=== PATIENT | female | born 1965 | race Caucasian/White ===

== ENCOUNTER 2022-12-02 11:28 | Inpatient (IN) | payer MEDICAID ==
[~2022-12-02] VITALS: Ht 152.4 cm; Wt 104.0 kg
[~2022-12-02 11:28] MED LIST: ESCI-8 PO
[2022-12-04] MEDS ORDERED: LORazepam 2 MG TABLET PO PRN (16:45)
[2022-12-04] MEDS ORDERED: HALOPERIDOL 5 MG TABLET PO PRN (16:45)
[2022-12-04 17:29] VITALS: BP 127/45; PULSE 90; RESP 18; TEMP 97.3; O2SAT 97
[2022-12-04] MEDS ORDERED: PANT40TA54 PO (18:48)
[2022-12-04] MEDS ORDERED: FLUT1BLS9 IH (18:48)
[2022-12-04] MEDS ORDERED: DULO-114 PO (18:48)
[2022-12-04] MEDS ORDERED: GABA-1181 PO (18:48)
[2022-12-04] MEDS ORDERED: BUSP10TA23 PO (18:48)
[2022-12-04] MEDS ORDERED: FERR325T23 PO (18:48)
[2022-12-04] MEDS ORDERED: LEVE250T4 PO (18:48)
[2022-12-04] MEDS ORDERED: CLOT15CR23 TP (18:48)
[2022-12-04] MEDS ORDERED: DICL100G31 TP (18:48)
[2022-12-04] MEDS ORDERED: FURO40TA5 PO (18:48)
[2022-12-04] MEDS ORDERED: RISP2TAB45 PO (18:48)
[2022-12-04] MEDS ORDERED: DIVA500T53 PO (18:48)
[2022-12-04] MEDS ORDERED: TRAZ-257 PO (18:48)
[2022-12-04] MEDS ORDERED: CHOL100062 PO (18:48)
[2022-12-04] MEDS ORDERED: NITR0.4T52 SL (18:48)
[2022-12-04] MEDS ORDERED: BENZONATATE 100 MG CAPSULE PO PRN (19:15)
[2022-12-04] MEDS ORDERED: PHENAZOPYRIDINE HCL 100 MG TABLET PO PRN (19:15)
[2022-12-04] MEDS ORDERED: ONDANSETRON HCL 4 MG TABLET PO PRN (19:15)
[2022-12-04] MEDS: QUEtiapine FUMARATE 25 MG TABLET PO SCH (21:07)
[2022-12-04] MEDS: DIVALPROEX SODIUM 500 MG ER TABLET PO SCH (21:07)
[2022-12-04 21:17] VITALS: BP 115/68; PULSE 77; RESP 18; TEMP 97.8; O2SAT 96
[2022-12-04] MEDS: FLUTICASONE/SALMETEROL 100-50 MCG/INH INHALER [60] IH SCH (21:29)
[2022-12-05] MEDS: FERROUS SULFATE 325 MG EC TABLET PO SCH ×2 (06:53→16:20)
[2022-12-05] MEDS: FUROSEMIDE 40 MG TABLET PO SCH (08:07)
[2022-12-05] MEDS: CHOLECALCIFEROL (VIT D3) 1,000 UNITS [25 MCG] TABLET PO SCH (08:07)
[2022-12-05] MEDS: OMEPRAZOLE 20 MG CAPSULE PO SCH (08:07)
[2022-12-05] MEDS: LevETIRAcetam 250 MG TABLET PO SCH ×2 (08:08→16:20)
[2022-12-05] MEDS: ESCITALOPRAM OXALATE 10 MG TABLET PO SCH (08:08)
[2022-12-05] MEDS: ASCORBIC ACID 500 MG TABLET PO SCH ×2 (08:08→16:20)
[2022-12-05] MEDS: POTASSIUM CHLORIDE 8 MEQ ER TABLET PO SCH (08:08)
[2022-12-05] MEDS: QUEtiapine FUMARATE 25 MG TABLET PO SCH ×2 (08:10→21:32)
[2022-12-05] MEDS: FLUTICASONE/SALMETEROL 100-50 MCG/INH INHALER [60] IH SCH ×2 (08:11→21:31)
[2022-12-05] MEDS: LISINOPRIL 10 MG TABLET PO SCH (09:32)
[2022-12-05 09:44] VITALS: BP 116/68; PULSE 81; RESP 18; TEMP 97; O2SAT 96
[2022-12-05] MEDS: GABAPENTIN 300 MG CAPSULE PO SCH ×2 (14:49→16:20)
[2022-12-05] MEDS: RisperiDONE 3 MG TABLET PO SCH (16:20)
[2022-12-05] MEDS: BusPIRone HCL 10 MG TABLET PO SCH (16:20)
[2022-12-05 20:58] VITALS: BP 101/63; PULSE 84; RESP 18; TEMP 97.2; O2SAT 95
[2022-12-05] MEDS: DIVALPROEX SODIUM 500 MG ER TABLET PO SCH (21:32)
[2022-12-05] MEDS: ZOLPIDEM TARTRATE 5 MG TABLET PO PRN (21:32)
[2022-12-06] MEDS: FERROUS SULFATE 325 MG EC TABLET PO SCH ×2 (06:39→16:25)
[2022-12-06 09:17] VITALS: BP 114/69; PULSE 98; RESP 18; TEMP 97.9; O2SAT 97
[2022-12-06] MEDS: BusPIRone HCL 10 MG TABLET PO SCH ×2 (09:40→18:21)
[2022-12-06] MEDS: LevETIRAcetam 250 MG TABLET PO SCH ×2 (09:40→18:21)
[2022-12-06] MEDS: ASCORBIC ACID 500 MG TABLET PO SCH ×2 (09:41→16:24)
[2022-12-06] MEDS: GABAPENTIN 300 MG CAPSULE PO SCH ×3 (09:46→16:23)
[2022-12-06] MEDS: RisperiDONE 3 MG TABLET PO SCH ×2 (09:47→16:23)
[2022-12-06] MEDS: QUEtiapine FUMARATE 25 MG TABLET PO SCH ×2 (09:47→21:18)
[2022-12-06] MEDS: LISINOPRIL 10 MG TABLET PO SCH (09:47)
[2022-12-06] MEDS: OMEPRAZOLE 20 MG CAPSULE PO SCH (09:48)
[2022-12-06] MEDS: POTASSIUM CHLORIDE 8 MEQ ER TABLET PO SCH (09:48)
[2022-12-06] MEDS: ESCITALOPRAM OXALATE 10 MG TABLET PO SCH (09:48)
[2022-12-06] MEDS: CHOLECALCIFEROL (VIT D3) 1,000 UNITS [25 MCG] TABLET PO SCH (09:48)
[2022-12-06] MEDS: FUROSEMIDE 40 MG TABLET PO SCH (09:48)
[2022-12-06] MEDS: FLUTICASONE/SALMETEROL 100-50 MCG/INH INHALER [60] IH SCH ×2 (09:49→21:17)
[2022-12-06] MEDS: DIVALPROEX SODIUM 500 MG ER TABLET PO SCH (21:18)
[2022-12-06] MEDS: ZOLPIDEM TARTRATE 5 MG TABLET PO PRN (21:19)
[2022-12-06 23:37] VITALS: RESP 18
[2022-12-07] MEDS: FERROUS SULFATE 325 MG EC TABLET PO SCH ×2 (06:34→17:56)
[2022-12-07] MEDS ORDERED: NICOTINE 14 MG/24 HOUR PATCH TD PRN (07:00)
[2022-12-07] MEDS ORDERED: DOCUSATE SODIUM 100 MG CAPSULE PO PRN (07:00)
[2022-12-07] MEDS ORDERED: PETROLATUM,WHITE 28 GM JELLY TP PRN (07:00)
[2022-12-07] MEDS ORDERED: ACETAMINOPHEN 325 MG TABLET PO PRN (07:00)
[2022-12-07] MEDS ORDERED: MAGNESIUM HYDROXIDE SUSPENSION 30 ML UDCUP PO PRN (07:00)
[2022-12-07] MEDS ORDERED: IBUPROFEN 400 MG TABLET PO PRN (07:00)
[2022-12-07] MEDS ORDERED: LOPERAMIDE HCL 2 MG CAPSULE PO PRN (07:00)
[2022-12-07] MEDS ORDERED: ONDANSETRON HCL 4 MG TABLET PO PRN (07:00)
[2022-12-07] MEDS ORDERED: CloNIDine HCL 0.1 MG TABLET PO PRN (07:00)
[2022-12-07] MEDS ORDERED: MAG HYDROX/AL HYDROX/SIMETH ES 30 ML SUSPENSION UDCUP PO PRN (07:00)
[2022-12-07] MEDS ORDERED: ALBUTEROL SULFATE HFA 90 MCG/PUFF 8 GM INHALER IH PRN (07:00)
[2022-12-07 08:50] VITALS: BP 107/72; PULSE 86; RESP 18; TEMP 97.7; O2SAT 97
[2022-12-07] MEDS: RisperiDONE 3 MG TABLET PO SCH ×2 (09:00→17:16)
[2022-12-07] MEDS: ASCORBIC ACID 500 MG TABLET PO SCH ×2 (09:00→17:16)
[2022-12-07] MEDS: OMEPRAZOLE 20 MG CAPSULE PO SCH (09:00)
[2022-12-07] MEDS: QUEtiapine FUMARATE 25 MG TABLET PO SCH ×2 (09:00→20:39)
[2022-12-07] MEDS: CHOLECALCIFEROL (VIT D3) 1,000 UNITS [25 MCG] TABLET PO SCH (09:00)
[2022-12-07] MEDS: BusPIRone HCL 10 MG TABLET PO SCH ×2 (09:01→17:16)
[2022-12-07] MEDS: LISINOPRIL 10 MG TABLET PO SCH (09:01)
[2022-12-07] MEDS: FUROSEMIDE 40 MG TABLET PO SCH (09:01)
[2022-12-07] MEDS: ESCITALOPRAM OXALATE 10 MG TABLET PO SCH (09:01)
[2022-12-07] MEDS: LevETIRAcetam 250 MG TABLET PO SCH ×2 (09:01→17:17)
[2022-12-07] MEDS: FLUTICASONE/SALMETEROL 100-50 MCG/INH INHALER [60] IH SCH ×2 (09:02→20:39)
[2022-12-07] MEDS: GABAPENTIN 300 MG CAPSULE PO SCH ×3 (09:02→17:17)
[2022-12-07] MEDS: POTASSIUM CHLORIDE 8 MEQ ER TABLET PO SCH (10:43)
[2022-12-07] MEDS: GuaiFENesin/D-METHORPHAN [SUGAR-FREE] 200-20MG/10 ML SYRUP UDCUP PO PRN (18:30)
[2022-12-07 20:24] VITALS: BP 105/58; PULSE 84; RESP 18; TEMP 97.6; O2SAT 94
[2022-12-07] MEDS: DIVALPROEX SODIUM 500 MG ER TABLET PO SCH (20:39)
[2022-12-08] MEDS: FERROUS SULFATE 325 MG EC TABLET PO SCH ×2 (06:38→17:58)
[2022-12-08 08:53] VITALS: BP 119/65; PULSE 95; RESP 18; TEMP 97.1; O2SAT 96
[2022-12-08 10:05] LABS: BASOPHILS % (AUTO) 0.3 % (0.0-2.0); EOSINOPHILS % (AUTO) 2.2 % (1.0-6.0); HEMATOCRIT 33.9 % (36-46); LYMPHOCYTES % (AUTO) 32.8 % (22.0-44.0); MEAN CORPUSCULAR HEMOGLOBIN 30.2 pg (26.0-34.0); MEAN CORPUSCULAR HGB CONC 32.4 G/dL (31.0-37.0); MEAN CORPUSCULAR VOLUME 93 fL (80-100); MONOCYTES # (AUTO) 0.5 K/uL (0.1-1.0); MONOCYTES % (AUTO) 9.1 % (2.0-9.0); NEUTROPHILS # (AUTO) 3.3 K/uL (1.8-7.7); NEUTROPHILS % (AUTO) 55.6 % (40.0-70.0); PLATELET COUNT (AUTO) 332 K/uL (150-450); RED BLOOD CELL COUNT(AUTO) 3.63 MIL/uL (4.00-5.20)
[2022-12-08 10:17] LABS: HEMOGLOBIN A1C 5.4 % (3.8-5.6)
[2022-12-08] MEDS: ESCITALOPRAM OXALATE 10 MG TABLET PO SCH (10:19)
[2022-12-08] MEDS: GABAPENTIN 300 MG CAPSULE PO SCH ×3 (10:21→17:58)
[2022-12-08] MEDS: FUROSEMIDE 40 MG TABLET PO SCH (10:21)
[2022-12-08] MEDS: OMEPRAZOLE 20 MG CAPSULE PO SCH (10:21)
[2022-12-08] MEDS: LISINOPRIL 10 MG TABLET PO SCH (10:21)
[2022-12-08] MEDS: RisperiDONE 3 MG TABLET PO SCH ×2 (10:21→17:58)
[2022-12-08] MEDS: CHOLECALCIFEROL (VIT D3) 1,000 UNITS [25 MCG] TABLET PO SCH (10:21)
[2022-12-08 10:28] LABS: ALBUMIN 2.9 g/dL (3.4-5.0); BILIRUBIN,TOTAL 0.2 mg/dL (0.1-1.0); CALCIUM, TOTAL 9.5 mg/dL (8.8-10.5); CREATININE 1.01 mg/dL (0.60-1.30); POTASSIUM 4.7 mmol/L (3.5-5.1); THYROID STIMULATING HORMONE 0.77 uIU/mL (0.36-3.74); TOTAL PROTEIN, SERUM 6.5 g/dL (6.4-8.2)
[2022-12-08] MEDS: BusPIRone HCL 10 MG TABLET PO SCH ×2 (10:29→17:59)
[2022-12-08] MEDS: LevETIRAcetam 250 MG TABLET PO SCH ×2 (10:29→17:58)
[2022-12-08] MEDS: ASCORBIC ACID 500 MG TABLET PO SCH ×2 (10:29→17:57)
[2022-12-08] MEDS: POTASSIUM CHLORIDE 8 MEQ ER TABLET PO SCH (10:29)
[2022-12-08] MEDS: QUEtiapine FUMARATE 25 MG TABLET PO SCH ×2 (10:33→20:46)
[2022-12-08] MEDS: FLUTICASONE/SALMETEROL 100-50 MCG/INH INHALER [60] IH SCH ×2 (10:38→20:46)
[2022-12-08] MEDS: GuaiFENesin/D-METHORPHAN [SUGAR-FREE] 200-20MG/10 ML SYRUP UDCUP PO PRN (18:30)
[2022-12-08 20:13] VITALS: BP 100/54; PULSE 86; RESP 17; TEMP 97.6; O2SAT 95
[2022-12-08 20:19] VITALS: BP 100/54; PULSE 80; RESP 17; TEMP 97.6; O2SAT 95
[2022-12-08] MEDS: DIVALPROEX SODIUM 500 MG ER TABLET PO SCH (20:45)
[2022-12-09] MEDS: FERROUS SULFATE 325 MG EC TABLET PO SCH ×2 (06:48→17:33)
[2022-12-09 08:01] LABS: CHOL/HDL RATIO 5.6 (3.9-5.7)
[2022-12-09] MEDS: LISINOPRIL 10 MG TABLET PO SCH (09:06)
[2022-12-09] MEDS: ESCITALOPRAM OXALATE 10 MG TABLET PO SCH (09:06)
[2022-12-09] MEDS: RisperiDONE 3 MG TABLET PO SCH ×2 (09:06→17:32)
[2022-12-09] MEDS: QUEtiapine FUMARATE 25 MG TABLET PO SCH ×2 (09:06→20:29)
[2022-12-09] MEDS: OMEPRAZOLE 20 MG CAPSULE PO SCH (09:06)
[2022-12-09] MEDS: FLUTICASONE/SALMETEROL 100-50 MCG/INH INHALER [60] IH SCH ×2 (09:06→21:11)
[2022-12-09 09:07] VITALS: BP 115/64; PULSE 98; RESP 18; TEMP 97.5; O2SAT 98
[2022-12-09] MEDS: ASCORBIC ACID 500 MG TABLET PO SCH ×2 (09:07→17:32)
[2022-12-09] MEDS: LevETIRAcetam 250 MG TABLET PO SCH ×2 (09:07→17:33)
[2022-12-09] MEDS: FUROSEMIDE 40 MG TABLET PO SCH (09:07)
[2022-12-09] MEDS: BusPIRone HCL 10 MG TABLET PO SCH ×2 (09:07→17:33)
[2022-12-09] MEDS: POTASSIUM CHLORIDE 8 MEQ ER TABLET PO SCH (09:07)
[2022-12-09] MEDS: GABAPENTIN 300 MG CAPSULE PO SCH ×3 (09:09→17:32)
[2022-12-09] MEDS: CHOLECALCIFEROL (VIT D3) 1,000 UNITS [25 MCG] TABLET PO SCH (09:09)
[2022-12-09 20:26] VITALS: BP 120/50; PULSE 71; RESP 18; TEMP 97.1; O2SAT 94
[2022-12-09] MEDS: DIVALPROEX SODIUM 500 MG ER TABLET PO SCH (20:29)
[2022-12-10] MEDS: FERROUS SULFATE 325 MG EC TABLET PO SCH (06:36)
[2022-12-10] MEDS: POTASSIUM CHLORIDE 8 MEQ ER TABLET PO SCH (07:53)
[2022-12-10] MEDS: LISINOPRIL 10 MG TABLET PO SCH (07:53)
[2022-12-10] MEDS: GABAPENTIN 300 MG CAPSULE PO SCH ×2 (07:53→13:14)
[2022-12-10] MEDS: OMEPRAZOLE 20 MG CAPSULE PO SCH (07:53)
[2022-12-10] MEDS: FUROSEMIDE 40 MG TABLET PO SCH (07:53)
[2022-12-10] MEDS: QUEtiapine FUMARATE 25 MG TABLET PO SCH (07:53)
[2022-12-10] MEDS: CHOLECALCIFEROL (VIT D3) 1,000 UNITS [25 MCG] TABLET PO SCH (07:53)
[2022-12-10] MEDS: ASCORBIC ACID 500 MG TABLET PO SCH (07:54)
[2022-12-10] MEDS: BusPIRone HCL 10 MG TABLET PO SCH (07:54)
[2022-12-10] MEDS: FLUTICASONE/SALMETEROL 100-50 MCG/INH INHALER [60] IH SCH (07:54)
[2022-12-10] MEDS: LevETIRAcetam 250 MG TABLET PO SCH (07:54)
[2022-12-10] MEDS: ESCITALOPRAM OXALATE 10 MG TABLET PO SCH (07:54)
[2022-12-10] MEDS: RisperiDONE 3 MG TABLET PO SCH (07:54)
[2022-12-10 08:47] VITALS: BP 124/72; PULSE 82; RESP 18; TEMP 97.6; O2SAT 98
[2022-12-10] MEDS ORDERED: DIVA500T69 PO (13:09)
[2022-12-10] MEDS ORDERED: QUET25TA36 PO (13:09)
[2022-12-10] MEDS ORDERED: BUSP10TA23 PO (13:09)
[2022-12-10] MEDS ORDERED: RISP3TAB63 PO (13:09)
[2022-12-10] MEDS ORDERED: GABA-1181 PO (13:09)
[2022-12-10] MEDS ORDERED: ESCI-8 PO (13:09)
[2022-12-10] MEDS ORDERED: LISI-893 PO (14:50)
== END 2022-12-10 15:00 | disposition home or self-care (01) | DRG 750 ==
LOC: 3EI 12-04 16:35
PROVIDERS: ADMIT Psychiatry & Neurology Child & Adolescent Psychiatry; ATTEND Psychiatry & Neurology Child & Adolescent Psychiatry
DX: F25.1 Schizoaffective disorder, depressive type (principal); G40.909 Epilepsy, unspecified, not intractable, without status epilepticus; R45.851 Suicidal ideations; E55.9 Vitamin D deficiency, unspecified; E78.5 Hyperlipidemia, unspecified; F10.10 Alcohol abuse, uncomplicated; K21.9 Gastro-esophageal reflux disease without esophagitis; I10 Essential (primary) hypertension; J44.9 Chronic obstructive pulmonary disease, unspecified; R53.81 Other malaise; Z79.899 Other long term (current) drug therapy; Z88.2 Allergy status to sulfonamides; Z88.0 Allergy status to penicillin; Z91.013 Allergy to seafood
CPT/HCPCS: 80053; 80061; 83036; 84443; 85025; 97110; 97116; 97161; 97166; 97535; J3535